=== PATIENT | male | born 1985 | race Caucasian/White ===

== ENCOUNTER 2017-01-29 22:17 | Emergency (ER) | payer SELFPAY ==
[2017-01-29 22:17] VITALS: BMI 29.0
[2017-01-29 22:53] VITALS: RESP 18; TEMP 98.7
[2017-01-29] MEDS ORDERED: Tmp-Smz 800 mg-160 mg DS Tab PO STA (23:19)
--- NOTE | 2017-01-30 00:21 | ED PDOC ---
Arrival/HPI - General Chief Complaint: Abnormal Skin Integrity Time Seen by Provider: 01/29/17 22:36 Historian: Patient - History of Present Illness Narrative History of Present Illness (Text): 01/30/17 00:37 31yr old male presents today with abscess to the left buttock x 1 year. pt states he has had on and swelling of the abscess, then states the abscess pops and then will be good for a while and then starts all over again. pt denies fever/chills. denies n/v/d/d no abdominal pain. no cp or sob. pt states he just popped abscess today. pt states he had clear/white discharge from site. no other complaints. Time/Duration: Other (1yr) Symptom Course: Intermittent Quality: Pressure, Throbbing Past Medical History - Provider Review Nursing Documentation Reviewed: Yes - Travel History Have you recently traveled outside [place] w/in the past 3 mons?: No - Past History Past History: No Previous - Infectious Disease Hx of Infectious Diseases: None - Tetanus Immunization Tetanus Immunization: Up to Date - Past Medical History Past Medical History: No Previous - Cardiac Hx Cardiac Arrhythmia: No Hx Congestive Heart Failure: No Hx Hypertension: No Hx Internal Defibrillator: No Hx Mitral Valve Prolapse: No Hx Pacemaker: No Hx Peripheral Edema: No - Pulmonary Hx Bronchitis: No Hx Chronic Obstructive Pulmonary Disease (COPD): No Hx Emphysema: No - Neurological Hx Alzheimer's Disease: No HX Cerebrovascular Accident: No Hx Dementia: No Hx Migraine: No Hx Parkinson's Disease: No Hx Seizures: No Hx Transient Ischemic Attacks (TIA): No - Renal Hx Renal Failure: No - Endocrine/Metabolic Hx Hyperthyroidism: No Hx Hypothyroidism: No - Hematological/Oncological Hx Anemia: No Hx Cancer: No Hx Hepatitis A: No Hx Hepatitis B: No Hx Hepatitis C: No - Musculoskeletal/Rheumatological Hx Arthritis: No - Gastrointestinal Hx Crohn's Disease: No Hx Diverticulitis: No Hx Gastrointestinal Ulcer: No Hx Liver Failure: No - Psychiatric Hx Psychophysiologic Disorder: No Hx Depression: No Hx Emotional Abuse: No Hx Physical Abuse: No Hx Substance Use: Yes (MArijuana) - Past Surgical History Past Surgical History: No Previous - Surgical History Hx Amputation: No Hx Appendectomy: No Hx Cardiac Catheterization: No Hx Cholecystectomy: No Hx Coronary Stent: No Hx Gastric Bypass Surgery: No Hx Hysterectomy: No Hx Joint Replacement: No Hx Kidney Transplant: No Hx Liver Transplant: No Hx Mastectomy: No Hx Open Heart Surgery: No Hx Orthopedic Surgery: No Hx Splenectomy: No Hx Valve Replacement: No - Anesthesia Hx Anesthesia: No - Suicidal Assessment Feels Threatened In Home Enviroment: No Family/Social History - Physician Review Nursing Documentation Reviewed: Yes Family/Social History: Unknown Family HX Smoking Status: Never Smoked Hx Alcohol Use: Yes Hx Substance Use: Yes (MArijuana) Substance used: marijuana Hx Substance Use Treatment: No Allergies/Home Meds Allergies/Adverse Reactions: Allergies No Known Allergies Allergy (Verified 01/29/17 22:55) Review of Systems - Review of Systems Constitutional: absent: Fatigue, Fevers Respiratory: absent: SOB, Cough Cardiovascular: absent: Chest Pain, Palpitations Gastrointestinal: absent: Abdominal Pain, Nausea, Vomiting Genitourinary Male: absent: Dysuria, Frequency Musculoskeletal: absent: Back Pain, Neck Pain Skin: Abscess (buttock) Neurological: absent: Headache, Dizziness Physical Exam Vital Signs Reviewed: Yes Vital Signs Temp Pulse Resp BP Pulse Ox 01/29/17 22:53 98.7 F 104 H 18 106/68 97 Temperature: Afebrile Blood Pressure: Normal Pulse: Tachycardic Respiratory Rate: Normal Appearance: Positive for: Well-Appearing, Non-Toxic, Comfortable Pain Distress: None Mental Status: Positive for: Alert and Oriented X 3 - Systems Exam Respiratory/Chest: Present: Clear to Auscultation, Good Air Exchange. No: Respiratory Distress, Accessory Muscle Use Cardiovascular: Present: Regular Rate and Rhythm, Normal S1, S2. No: Murmurs Abdomen: No: Tenderness Upper Extremity: Present: Normal ROM, NORMAL PULSES, Neurovascularly Intact, Capillary Refill < 2s, Other (left upper arm; there is a dry erythematous non tender, non blanching round area of erythema approx 3cm round located to the medial aspect of the left upper arm. ). No: Tenderness, Swelling, Erythema, Deformity Lower Extremity: Present: Other (buttock; there is a dime sized area of erythema with surrounding induration located to the left buttock just adjacent to the crease; no fluctuance noted; ) Neurological: Present: GCS=15, Speech Normal Skin: Present: Warm, Dry Psychiatric: Present: Alert, Oriented x 3 Medical Decision Making ED Course and Treatment: 01/30/17 00:49 Patient is nontoxic well-appearing in no distress. Vital signs are stable. Motrin,tramadol given for pain Bactrim DS p.o. pt refusing I&D of abscess. will treat with PO abx. advised warm compresses, f/u with surgeon. will give patient rx for lotrisone to apply to left upper arm rash. pt was advised to return immediately if symptoms worsen persist or if new symptoms develop Impression: Abscess, buttock Motrin one tablet every 6 hours as needed for pain Tramadol; one tablet every 6 hours as needed for moderate to severe pain: May cause drowsiness Bactrim DS: One tablet twice daily x7 days Warm compresses and warm soaks frequently Follow up with the surgeon within the next 2 days. lotrisone; twice daily to affected area on arm. Return immediately if symptoms worsen persist or if new symptoms develop: High fevers, increasing pain, increasing redness, swelling or if any other concerning symptoms develop. - Medication Orders Current Medication Orders: Discontinued Medications Ibuprofen (Motrin Tab) 600 mg PO STAT STA Stop: 01/29/17 23:20 Last Admin: 01/29/17 23:34 Dose: 600 mg Tramadol HCl (Ultram) 50 mg PO STAT STA Stop: 01/29/17 23:20 Last Admin: 01/29/17 23:34 Dose: 50 mg Trimethoprim/Sulfamethoxazole (Bactrim Ds Tab) 1 tab PO STAT STA PRN Reason: Protocol Stop: 01/29/17 23:20 Last Admin: 01/29/17 23:34 Dose: 1 tab Disposition/Present on Arrival - Present on Arrival Any Indicators Present on Arrival: No History of DVT/PE: No History of Uncontrolled Diabetes: No Urinary Catheter: No History of Decub. Ulcer: No History Surgical Site Infection Following: None - Disposition Have Diagnosis and Disposition been Completed?: Yes Diagnosis: Abscess Disposition: HOME/ ROUTINE Disposition Time: 00:15 Patient Plan: Discharge Condition: GOOD Discharge Instructions (ExitCare): Abscess (ED) Additional Instructions: Motrin one tablet every 6 hours as needed for pain Tramadol; one tablet every 6 hours as needed for moderate to severe pain: May cause drowsiness Bactrim DS: One tablet twice daily x7 days Warm compresses and warm soaks frequently Follow up with the surgeon within the next 2 days. Return immediately if symptoms worsen persist or if new symptoms develop: High fevers, increasing pain, increasing redness, swelling or if any other concerning symptoms develop. Prescriptions: Ibuprofen [Motrin] 600 mg PO Q6H PRN #20 tab PRN Reason: pain/fever reduction Sulfamethoxazole/Trimethoprim [Bactrim DS 800 mg-160 mg] 1 tab PO BID #14 tab traMADol [Ultram] 50 mg PO Q6H PRN #15 tab PRN Reason: moderate to severe pain Referrals: [facility] at [facility] [place] [Outside] - Follow up with primary Mi Og MD [Staff Provider] - Follow up with primary
[2017-01-30 00:44] VITALS: BP 113/69; PULSE 72; O2SAT 98
== END 2017-01-30 00:41 | disposition home or self-care (01) ==
LOC: ED 22:17
DX: L02.31 Cutaneous abscess of buttock (principal)